=== PATIENT | male | born 1955 | race Caucasian/White ===

== ENCOUNTER 2021-04-29 00:06 | Emergency (ER) | payer MEDICARE, MEDICAID ==
[~2021-04-29] VITALS: Ht 170.2 cm; Wt 63.5 kg
[2021-04-29 00:32] LABS: HEMATOCRIT 36.5 % (42.0-52.0); HEMOGLOBIN 12.6 gm/dL (14.0-18.0); MCHC 34.5 g/dL (28.0-37.0); MCV 92.7 fL (80.0-100.0); MPV 7.5 fl. (7.2-11.1); RBC 3.93 mil/uL (4.50-6.00); RDW-CV 14.4 % (10.5-14.5); WBC 6.3 thou/uL (4.0-11.0)
[2021-04-29 00:41] LABS: CALCIUM 8.7 mg/dL (8.5-10.1); CREATININE 0.9 mg/dL (0.6-1.3); POTASSIUM 3.2 mmol/L (3.5-5.1)
[2021-04-29 00:45] LABS: ALBUMIN 3.4 g/dL (3.4-5.0); TOTAL BILIRUBIN 0.3 mg/dL (<0.1-1.0); TOTAL PROTEIN 6.9 g/dL (6.4-8.2)
[2021-04-29 01:11] LABS: ACETAMINOPHEN < 2 ug/mL (10-30); ALCOHOL < 10 mg/dL (<10); SALICYLATE 4.1 mg/dL (2.8-20.0)
[2021-04-29 05:27] VITALS: BP 142/73
== END 2021-04-29 05:29 | disposition home or self-care (01) ==
LOC: M.ERS 00:06
PROVIDERS: Personal Emergency Response Attendant
DX: Z00.8 Encounter for other general examination (principal); I10 Essential (primary) hypertension